=== PATIENT | male | born 1935 | race Caucasian/White ===

== ENCOUNTER 2021-12-27 18:28 | Emergency (ER) | payer MEDICARE ==
[2021-12-27 20:11] LABS: #Basophils 0.1 10x3/uL (0.0-0.2); #Eosinphils 0.4 10x3/uL (0.0-0.5); #Monocytes 0.9 10x3/uL (0.0-1.1); #Neutrophils 4.9 10x3/uL (1.5-8.4); %Basophils 0.7 % (0.0-2.0); %Eosinophils 4.7 % (0.0-6.0); %Lymphocytes 17.6 % (18.0-47.0); %Monocytes 11.4 % (0.0-10.0); %Neutrophils 64.9 % (40.0-75.0); Hemoglobin 10.5 g/dL (13.5-17.5); Mean Corpuscular HGB CONC 32.7 g/dL (32.0-36.0); Mean Corpuscular Hemoglobin 29.7 pg (27.0-33.0); Mean Corpuscular Volume 90.7 fl (81.2-95.1); Mean Platelet Volume 9.3 fl (7.4-10.4); Platelet Count 241 10x3/uL (150-450); RBC Distribution Width 14.6 % (11.5-14.5); Red Blood Cell (RBC) Count 3.54 10x6/uL (4.32-5.72); White Blood Cell (WBC) Count 7.6 10x3/uL (3.5-10.5)
[2021-12-27 20:27] LABS: ALT (SGPT) 32 U/L (8-55); AST (SGOT) 30 U/L (5-34); Albumin 3.3 g/dL (3.4-4.8); Alkaline Phosphatase 120 U/L (40-110); Anion Gap 13 mmol/L (10-20); BUN (Urea Nitrogen) 20 mg/dL (8.4-25.7); Bilirubin, Total 0.3 mg/dL (0.2-1.2); Calc. Creatinine Clearance 0 mL/min (70-130); Calcium 8.9 mg/dL (7.8-10.44); Carbon Dioxide 25 mmol/L (23-31); Chloride 101 mmol/L (98-107); Estimated GFR 85; Globulin 3.2 g/dL (2.4-3.5); Glucose 115 mg/dL (83-110); Potassium 3.7 mmol/L (3.5-5.1); Protein, Total 6.5 g/dL (5.8-8.1); Sodium 135 mmol/L (136-145)
== END 2021-12-27 21:04 | disposition home or self-care (01) ==
LOC: CSHERS 18:28
DX: I71.23 Aneurysm of the descending thoracic aorta, without rupture (principal); D64.9 Anemia, unspecified; E78.5 Hyperlipidemia, unspecified; I10 Essential (primary) hypertension; Z79.899 Other long term (current) drug therapy
CPT/HCPCS: 36415; 71045; 80053; 84484; 85025; 93005

== ENCOUNTER 2022-03-07 11:30 | Inpatient (IN) | payer MEDICARE ==
[2022-03-07] MEDS ORDERED: Vancomycin 1 GM VIAL ONE (12:05)
[2022-03-07] MEDS ORDERED: Cefepime 2 GM VIAL ONE (12:06)
[2022-03-07 12:38] LABS: #Monocytes 0.5 10x3/uL (0.0-1.1); #Neutrophils 5.6 10x3/uL (1.5-8.4); %Basophils 0.6 % (0.0-2.0); %Eosinophils 0.6 % (0.0-6.0); %Lymphocytes 10.2 % (18.0-47.0); %Monocytes 6.8 % (0.0-10.0); %Neutrophils 80.8 % (40.0-75.0); Hemoglobin 10.3 g/dL (13.5-17.5); Mean Corpuscular Hemoglobin 29.9 pg (27.0-33.0); Mean Corpuscular Volume 90.7 fl (81.2-95.1); Mean Platelet Volume 8.9 fl (7.4-10.4); Platelet Count 248 10x3/uL (150-450); RBC Distribution Width 13.3 % (11.5-14.5); Red Blood Cell (RBC) Count 3.44 10x6/uL (4.32-5.72); White Blood Cell (WBC) Count 6.9 10x3/uL (3.5-10.5)
[2022-03-07 12:52] LABS: Bilirubin Neg (Negative); Blood, Urine 10 (Negative); Clarity Slightly Cloudy (Clear); Glucose, Urine (Dipstick) Normal (Negative); Ketone, Urine Negative (Negative); Leukocyte 100 (Negative); Nitrite Negative (Negative); Protein, Urine (Dipstick) 15 mg/dl (Neg-Trace); Urobilinogen Normal mg/dL (Less than 2)
[2022-03-07 12:55] LABS: ALT (SGPT) 14 U/L (8-55); AST (SGOT) 24 U/L (5-34); Albumin 3.3 g/dL (3.4-4.8); Alkaline Phosphatase 114 U/L (40-110); Anion Gap 14 mmol/L (10-20); BUN (Urea Nitrogen) 15 mg/dL (8.4-25.7); Bilirubin, Total 0.3 mg/dL (0.2-1.2); CK (CPK) 70 U/L (30-200); Calc. Creatinine Clearance 0 mL/min (70-130); Calcium 8.7 mg/dL (7.8-10.44); Carbon Dioxide 21 mmol/L (23-31); Chloride 103 mmol/L (98-107); Estimated GFR 88; Globulin 3.3 g/dL (2.4-3.5); Glucose 126 mg/dL (83-110); Lipase 21 U/L (8-78); Potassium 3.8 mmol/L (3.5-5.1); Protein, Total 6.6 g/dL (5.8-8.1); Sodium 134 mmol/L (136-145)
[2022-03-07 12:57] LABS: Bacteria/HPF 3+ HPF (None Seen); RBC/HPF 0-3 HPF (0-3)
[2022-03-07 13:36] LABS: SARS-CoV-2 NAA Rapid Test Not Detected (NotDetected)
[2022-03-07] MEDS ORDERED: Acetaminophen 325 MG TAB PO PRN (15:56)
[2022-03-07] MEDS ORDERED: Acetaminophen 650 MG Suppository PR PRN (15:56)
[2022-03-07] MEDS ORDERED: hydrALAZINE 20 MG/ML VIAL SLOW IVP PRN (16:09)
[2022-03-07 16:44] LABS: Legionella Urinary Ag Negative (Negative); Strep pneumo Urine Ag NEGATIVE (NEGATIVE)
[2022-03-07] MEDS: Tamsulosin HCl 0.4 MG CAP PO SCH (21:25)
[2022-03-07] MEDS: Ferrous Sulfate 325 MG TAB PO SCH (21:26)
[2022-03-07] MEDS: Ascorbic Acid 500 mg Chewable Tablet PO SCH (21:26)
[2022-03-07] MEDS: methylPREDNISolone Sod Succ 40 MG VIAL IVP SCH (21:29)
[2022-03-07] MEDS: Famotidine/PF 20 mg/2ml Vial SLOW IVP SCH (21:29)
[2022-03-07] MEDS: Dextrose 5 %-0.45 % NaCl 1,000 ML IV SCH (21:40)
[2022-03-07] MEDS ORDERED: Vancomycin 1 GM in Premix Bag 1 BAG IVPB SCH (23:00)
[2022-03-07 23:19] VITALS: BMI 25.5
[2022-03-07] MEDS ORDERED: FLU VACC QS2022-23(65YR UP)/PF 240 MCG/0.7 ML SYRINGE IM ONE (23:45)
[2022-03-08] MEDS ORDERED: Ondansetron PF 4 MG/2 ML Vial IVP SCH (02:00)
[2022-03-08] MEDS: Cefepime 2 GM in Sodium Chloride 0.9% 100 ML IVPB SCH ×2 (02:24→14:26)
[2022-03-08 05:09] LABS: #Eosinphils 0.1 10x3/uL (0.0-0.5); #Monocytes 0.5 10x3/uL (0.0-1.1); #Neutrophils 8.6 10x3/uL (1.5-8.4); %Basophils 0.3 % (0.0-2.0); %Eosinophils 0.9 % (0.0-6.0); %Lymphocytes 9.1 % (18.0-47.0); %Monocytes 4.7 % (0.0-10.0); %Neutrophils 84.6 % (40.0-75.0); Hemoglobin 9.1 g/dL (13.5-17.5); Mean Corpuscular HGB CONC 33.5 g/dL (32.0-36.0); Mean Corpuscular Hemoglobin 29.6 pg (27.0-33.0); Mean Corpuscular Volume 88.6 fl (81.2-95.1); Mean Platelet Volume 9.2 fl (7.4-10.4); Platelet Count 224 10x3/uL (150-450); RBC Distribution Width 13.4 % (11.5-14.5); Red Blood Cell (RBC) Count 3.07 10x6/uL (4.32-5.72); White Blood Cell (WBC) Count 10.1 10x3/uL (3.5-10.5)
[2022-03-08] MEDS: methylPREDNISolone Sod Succ 40 MG VIAL IVP SCH ×2 (05:23→14:27)
[2022-03-08] MEDS: Folic Acid 1 MG TAB PO SCH (14:27)
[2022-03-08] MEDS: Famotidine/PF 20 mg/2ml Vial SLOW IVP SCH (14:27)
[2022-03-08] MEDS: Ascorbic Acid 500 mg Chewable Tablet PO SCH (14:27)
[2022-03-08] MEDS: Cyanocobalamin (Vitamin B-12) 1,000 MCG TAB PO SCH (14:27)
[2022-03-08] MEDS: Ferrous Sulfate 325 MG TAB PO SCH ×2 (14:28→20:04)
[2022-03-08 15:41] LABS: Anion Gap 11 mmol/L (10-20); BUN (Urea Nitrogen) 15 mg/dL (8.4-25.7); Calc. Creatinine Clearance 81 mL/min (70-130); Calcium 8.5 mg/dL (7.8-10.44); Carbon Dioxide 25 mmol/L (23-31); Chloride 104 mmol/L (98-107); Estimated GFR 88; Glucose 114 mg/dL (83-110); Potassium 3.8 mmol/L (3.5-5.1); Sodium 136 mmol/L (136-145)
[2022-03-08] MEDS: Dextrose 5 %-0.45 % NaCl 1,000 ML IV SCH (19:58)
[2022-03-08] MEDS: Vancomycin HCl 1 GM in Sodium Chloride 0.9% 250 ML 250 ML IVPB SCH ×3 (20:16→20:20)
[2022-03-09] MEDS: Famotidine/PF 20 mg/2ml Vial SLOW IVP SCH ×3 (00:34→20:36)
[2022-03-09] MEDS: methylPREDNISolone Sod Succ 40 MG VIAL IVP SCH ×4 (00:34→21:02)
[2022-03-09] MEDS: Cefepime 2 GM in Sodium Chloride 0.9% 100 ML IVPB SCH ×2 (00:34→11:29)
[2022-03-09] MEDS: Ascorbic Acid 500 mg Chewable Tablet PO SCH ×3 (00:34→20:37)
[2022-03-09] MEDS: Tamsulosin HCl 0.4 MG CAP PO SCH ×2 (00:35→20:37)
[2022-03-09 05:44] LABS: #Monocytes 0.4 10x3/uL (0.0-1.1); #Neutrophils 6.6 10x3/uL (1.5-8.4); %Basophils 0.1 % (0.0-2.0); %Lymphocytes 11.5 % (18.0-47.0); %Monocytes 4.7 % (0.0-10.0); %Neutrophils 83.2 % (40.0-75.0); Hemoglobin 8.9 g/dL (13.5-17.5); Mean Corpuscular Hemoglobin 29.3 pg (27.0-33.0); Mean Corpuscular Volume 88.8 fl (81.2-95.1); Mean Platelet Volume 9.5 fl (7.4-10.4); Platelet Count 215 10x3/uL (150-450); RBC Distribution Width 13.2 % (11.5-14.5); Red Blood Cell (RBC) Count 3.04 10x6/uL (4.32-5.72); White Blood Cell (WBC) Count 7.9 10x3/uL (3.5-10.5)
[2022-03-09 05:54] LABS: Anion Gap 13 mmol/L (10-20); BUN (Urea Nitrogen) 20 mg/dL (8.4-25.7); Calc. Creatinine Clearance 78 mL/min (70-130); Calcium 8.4 mg/dL (7.8-10.44); Carbon Dioxide 23 mmol/L (23-31); Chloride 104 mmol/L (98-107); Estimated GFR 87; Glucose 122 mg/dL (83-110); Potassium 3.8 mmol/L (3.5-5.1); Sodium 136 mmol/L (136-145)
[2022-03-09] MEDS: Cyanocobalamin (Vitamin B-12) 1,000 MCG TAB PO SCH (10:01)
[2022-03-09] MEDS: Folic Acid 1 MG TAB PO SCH (10:02)
[2022-03-09] MEDS: Ferrous Sulfate 325 MG TAB PO SCH ×2 (10:02→17:17)
[2022-03-09] MEDS: Dextrose 5 %-0.45 % NaCl 1,000 ML IV SCH ×2 (10:03)
[2022-03-09 19:53] LABS: Vancomycin, Trough 4.9 ug/mL
[2022-03-09] MEDS: Vancomycin HCl 1 GM in Sodium Chloride 0.9% 250 ML 250 ML IVPB SCH (20:36)
[2022-03-10] MEDS: Dextrose 5 %-0.45 % NaCl 1,000 ML IV SCH ×2 (00:51→11:17)
[2022-03-10] MEDS: Cefepime 2 GM in Sodium Chloride 0.9% 100 ML IVPB SCH ×2 (00:51→11:18)
[2022-03-10 05:03] LABS: Cardiac Risk 2.9 (Less than 4.5)
[2022-03-10] MEDS: methylPREDNISolone Sod Succ 40 MG VIAL IVP SCH ×3 (06:04→22:10)
[2022-03-10] MEDS: Aspirin 81 mg Enteric Coated Tablet PO SCH (09:07)
[2022-03-10] MEDS: Ascorbic Acid 500 mg Chewable Tablet PO SCH ×2 (09:07→22:10)
[2022-03-10] MEDS: Ferrous Sulfate 325 MG TAB PO SCH ×2 (09:07→16:07)
[2022-03-10] MEDS: Folic Acid 1 MG TAB PO SCH (09:07)
[2022-03-10] MEDS: Cyanocobalamin (Vitamin B-12) 1,000 MCG TAB PO SCH (09:07)
[2022-03-10] MEDS: Famotidine/PF 20 mg/2ml Vial SLOW IVP SCH ×2 (09:07→22:10)
[2022-03-10] MEDS: Vancomycin HCl 1 GM in Sodium Chloride 0.9% 250 ML 250 ML IVPB SCH ×2 (09:08→22:10)
[2022-03-10] MEDS ORDERED: Vancomycin 1 GM VIAL ONE (20:59)
[2022-03-10] MEDS ORDERED: Sodium Chloride 0.9% 250 ML 250 ML ONE (20:59)
[2022-03-10] MEDS: Tamsulosin HCl 0.4 MG CAP PO SCH (22:10)
[2022-03-10] MEDS ORDERED: Ondansetron ODT 4 MG TAB PO PRN (23:08)
[2022-03-11] MEDS: Cefepime 2 GM in Sodium Chloride 0.9% 100 ML IVPB SCH ×2 (00:24→11:15)
[2022-03-11] MEDS: Dextrose 5 %-0.45 % NaCl 1,000 ML IV SCH ×2 (02:15→13:56)
[2022-03-11 05:16] LABS: #Monocytes 0.5 10x3/uL (0.0-1.1); #Neutrophils 6.7 10x3/uL (1.5-8.4); %Basophils 0.1 % (0.0-2.0); %Lymphocytes 7.1 % (18.0-47.0); %Neutrophils 85.9 % (40.0-75.0); Hemoglobin 8.7 g/dL (13.5-17.5); Mean Corpuscular Hemoglobin 29.7 pg (27.0-33.0); Mean Corpuscular Volume 87.4 fl (81.2-95.1); Mean Platelet Volume 9.6 fl (7.4-10.4); Platelet Count 202 10x3/uL (150-450); RBC Distribution Width 13.3 % (11.5-14.5); Red Blood Cell (RBC) Count 2.93 10x6/uL (4.32-5.72); White Blood Cell (WBC) Count 7.9 10x3/uL (3.5-10.5)
[2022-03-11 05:32] LABS: Anion Gap 11 mmol/L (10-20); BUN (Urea Nitrogen) 19 mg/dL (8.4-25.7); Calc. Creatinine Clearance 81 mL/min (70-130); Calcium 8.3 mg/dL (7.8-10.44); Carbon Dioxide 24 mmol/L (23-31); Chloride 103 mmol/L (98-107); Estimated GFR 88; Glucose 141 mg/dL (83-110); Potassium 3.5 mmol/L (3.5-5.1); Sodium 134 mmol/L (136-145)
[2022-03-11] MEDS: methylPREDNISolone Sod Succ 40 MG VIAL IVP SCH ×3 (06:17→21:37)
[2022-03-11] MEDS: Vancomycin HCl 1 GM in Sodium Chloride 0.9% 250 ML 250 ML IVPB SCH ×2 (08:27→21:36)
[2022-03-11] MEDS: Folic Acid 1 MG TAB PO SCH (08:27)
[2022-03-11] MEDS: Famotidine/PF 20 mg/2ml Vial SLOW IVP SCH ×2 (08:27→21:36)
[2022-03-11] MEDS: Ascorbic Acid 500 mg Chewable Tablet PO SCH ×2 (08:27→21:37)
[2022-03-11] MEDS: Cyanocobalamin (Vitamin B-12) 1,000 MCG TAB PO SCH (08:27)
[2022-03-11] MEDS: Ferrous Sulfate 325 MG TAB PO SCH ×2 (08:27→16:30)
[2022-03-11] MEDS: Aspirin 81 mg Enteric Coated Tablet PO SCH (08:28)
[2022-03-11 08:29] LABS: Vancomycin, Trough 14.6 ug/mL
[2022-03-11] MEDS: Tamsulosin HCl 0.4 MG CAP PO SCH (21:37)
[2022-03-12] MEDS: Cefepime 2 GM in Sodium Chloride 0.9% 100 ML IVPB SCH ×2 (00:44→12:28)
[2022-03-12] MEDS: Dextrose 5 %-0.45 % NaCl 1,000 ML IV SCH (04:58)
[2022-03-12] MEDS: methylPREDNISolone Sod Succ 40 MG VIAL IVP SCH ×3 (05:12→21:53)
[2022-03-12 05:18] LABS: #Monocytes 0.6 10x3/uL (0.0-1.1); %Basophils 0.1 % (0.0-2.0); %Lymphocytes 10.6 % (18.0-47.0); %Monocytes 7.7 % (0.0-10.0); %Neutrophils 80.4 % (40.0-75.0); Hemoglobin 8.9 g/dL (13.5-17.5); Mean Corpuscular HGB CONC 34.2 g/dL (32.0-36.0); Mean Corpuscular Volume 87.5 fl (81.2-95.1); Mean Platelet Volume 9.4 fl (7.4-10.4); Platelet Count 202 10x3/uL (150-450); RBC Distribution Width 13.3 % (11.5-14.5); Red Blood Cell (RBC) Count 2.97 10x6/uL (4.32-5.72); White Blood Cell (WBC) Count 7.4 10x3/uL (3.5-10.5)
[2022-03-12 05:30] LABS: Anion Gap 11 mmol/L (10-20); BUN (Urea Nitrogen) 16 mg/dL (8.4-25.7); Calc. Creatinine Clearance 87 mL/min (70-130); Calcium 8.3 mg/dL (7.8-10.44); Carbon Dioxide 25 mmol/L (23-31); Chloride 101 mmol/L (98-107); Estimated GFR 90; Glucose 134 mg/dL (83-110); Potassium 3.5 mmol/L (3.5-5.1); Sodium 133 mmol/L (136-145)
[2022-03-12] MEDS: Ascorbic Acid 500 mg Chewable Tablet PO SCH ×2 (09:23→21:28)
[2022-03-12] MEDS: Ferrous Sulfate 325 MG TAB PO SCH ×2 (09:23→16:55)
[2022-03-12] MEDS: Vancomycin HCl 1 GM in Sodium Chloride 0.9% 250 ML 250 ML IVPB SCH ×2 (09:24→21:28)
[2022-03-12] MEDS: Aspirin 81 mg Enteric Coated Tablet PO SCH (09:24)
[2022-03-12] MEDS: Folic Acid 1 MG TAB PO SCH (09:25)
[2022-03-12] MEDS: Famotidine/PF 20 mg/2ml Vial SLOW IVP SCH ×2 (09:25→21:28)
[2022-03-12] MEDS: Cyanocobalamin (Vitamin B-12) 1,000 MCG TAB PO SCH (09:25)
[2022-03-12] MEDS: Tamsulosin HCl 0.4 MG CAP PO SCH (21:28)
[2022-03-13] MEDS: Cefepime 2 GM in Sodium Chloride 0.9% 100 ML IVPB SCH ×2 (03:49→12:40)
[2022-03-13] MEDS: methylPREDNISolone Sod Succ 40 MG VIAL IVP SCH ×2 (05:55→14:26)
[2022-03-13] MEDS ORDERED: Dextrose 5 %-0.45 % NaCl 1,000 ML IV SCH (06:45)
[2022-03-13] MEDS ORDERED: Famotidine/PF 20 mg/2ml Vial ONE (07:45)
[2022-03-13 08:00] LABS: Vancomycin, Trough 19.2 ug/mL
[2022-03-13] MEDS: Ferrous Sulfate 325 MG TAB PO SCH ×2 (08:07→17:42)
[2022-03-13] MEDS: Aspirin 81 mg Enteric Coated Tablet PO SCH (08:07)
[2022-03-13] MEDS: Ascorbic Acid 500 mg Chewable Tablet PO SCH (08:07)
[2022-03-13] MEDS: Cyanocobalamin (Vitamin B-12) 1,000 MCG TAB PO SCH (08:08)
[2022-03-13] MEDS: Folic Acid 1 MG TAB PO SCH (08:08)
[2022-03-13] MEDS: Famotidine/PF 20 mg/2ml Vial SLOW IVP SCH (08:20)
[2022-03-13] MEDS: Vancomycin HCl 1 GM in Sodium Chloride 0.9% 250 ML 250 ML IVPB SCH (08:33)
[2022-03-13] MEDS: Dextrose 5 %-0.45 % NaCl 1,000 ML IV SCH (08:37)
[2022-03-13] MEDS ORDERED: Labetalol HCl 100 MG/20 ML VIAL ONE (14:33)
[2022-03-13 15:05] VITALS: TEMP 98.1
[2022-03-13 18:00] VITALS: BP 178/76
== END 2022-03-13 20:00 | DRG 177 ==
LOC: CSHERS 11:30 → CSHTELE 21:05
PROVIDERS: ADMIT Family Medicine; ATTEND Family Medicine
DX: J69.0 Pneumonitis due to inhalation of food and vomit (principal); G93.41 Metabolic encephalopathy; I63.9 Cerebral infarction, unspecified; J96.01 Acute respiratory failure with hypoxia; N30.00 Acute cystitis without hematuria; Z66 Do not resuscitate; Z20.822 Contact with and (suspected) exposure to COVID-19; I10 Essential (primary) hypertension; F03.90 Unspecified dementia, unspecified severity, without behavioral disturbance, psychotic disturbance, mood disturbance, and anxiety; D64.9 Anemia, unspecified; N40.0 Benign prostatic hyperplasia without lower urinary tract symptoms; K21.9 Gastro-esophageal reflux disease without esophagitis; R13.10 Dysphagia, unspecified; Z88.0 Allergy status to penicillin; Z90.49 Acquired absence of other specified parts of digestive tract; Z88.2 Allergy status to sulfonamides; Z79.899 Other long term (current) drug therapy
CPT/HCPCS: 36415; 70450; 70551; 71045; 80048; 80053; 80061; 80202; 81003; 81015; 82140; 82550; 83605; 83690; 83880; 84443; 84484; 85025; 87040; 87077; 87081; 87086; 87186; 87449; 87899; 93005; 94760; 96365; 96375; J0692; J1956; J2405; J2920; J3370; J3490; J7042; J7050; J7620; S0028